=== PATIENT | female | born 1980 | race Caucasian/White ===

== ENCOUNTER 2017-03-01 20:44 | Emergency (ER) | payer MEDICAID ==
[2017-03-01 20:55] VITALS: BP 121/76
--- NOTE | 2017-03-01 21:24 | RAD ---
INDICATION: Wrist injury COMPARISON: None TECHNIQUE: AP, lateral, and oblique views were obtained. FINDINGS: The bony structures, joint spaces, and soft tissues are normal for age. IMPRESSION: NO ACUTE BONY FINDINGS.
--- NOTE | 2017-03-01 21:46 | UC ---
Hand/Wrist HPI - HPI Summary HPI Summary: LID OF HEAVY TRUNK FELL ONTO RIGHT WRIST. - History Of Current Complaint Chief Complaint: UCUpperExtremity Stated Complaint: WRIST INJURY Time Seen by Provider: 03/01/17 20:59 Hx Obtained From: Patient Hx Last Menstrual Period: 2003 Onset/Duration: Sudden Onset, Lasting Hours, Still Present Severity Initially: Moderate Severity Currently: Moderate Character Of Pain: Dull, Aching Aggravating Factor(s): Movement, Flexion, Extension Alleviating: Rest, Ice Related History: Dominant Hand Right - Allergies/Home Medications Allergies/Adverse Reactions: Allergies Allergy/AdvReac Type Severity Reaction Status Date / Time Codeine Allergy Unknown Verified 03/01/17 20:55 Reaction Details PMH/Surg Hx/FS Hx/Imm Hx Previously Healthy: Yes Endocrine History Of: Denies: Diabetes Respiratory History Of: Denies: COPD, Asthma - Surgical History Surgical History: Yes Surgery Procedure, Year, and Place: partial hysterectomy/michael/4 c-sections. BLADDER SUTURES TO 'TACK UP' BLADDER. - Family History Known Family History: Positive: Diabetes - Social History Occupation: Employed Full-time Lives: With Family Alcohol Use: Occasionally Substance Use Type: None Smoking Status (MU): Former Smoker Have You Smoked in the Last Year: No - Immunization History Hx Tetanus, Diphtheria Vaccination: Yes Vaccination Up to Date: Yes Review of Systems Constitutional: Negative Skin: Negative Eyes: Negative ENT: Negative Respiratory: Negative Cardiovascular: Negative Gastrointestinal: Negative Genitourinary: Negative Motor: Negative Neurovascular: Negative Musculoskeletal: Arthralgia - RIGHT WRIST, Myalgia Neurological: Negative Psychological: Negative All Other Systems Reviewed And Are Negative: Yes Physical Exam Triage Information Reviewed: Yes Appearance: Well-Appearing, No Pain Distress, Well-Nourished Vital Signs: Initial Vital Signs Temp 97.7 F 03/01/17 20:52 Pulse 80 03/01/17 20:52 Resp 18 03/01/17 20:52 BP 121/76 03/01/17 20:52 Pulse Ox 100 03/01/17 20:52 Vital Signs Reviewed: Yes Eye Exam: Normal ENT Exam: Normal ENT: Positive: Normal ENT inspection, Hearing grossly normal, Pharynx normal, TMs normal Dental Exam: Normal Neck exam: Normal Neck: Positive: Supple, Nontender, No Lymphadenopathy Respiratory Exam: Normal Respiratory: Positive: Chest non-tender, Lungs clear, Normal breath sounds, No respiratory distress, No accessory muscle use Cardiovascular Exam: Normal Cardiovascular: Positive: RRR, No Murmur, Pulses Normal Abdominal Exam: Normal Musculoskeletal: Positive: Strength Intact, ROM Intact, No Edema, Other: - TENDER RADIAL ASPECT OF RIGHT WRIST Neurological Exam: Normal Psychological Exam: Normal Skin Exam: Normal Hand/Wrist Course/Dx - Differential Dx/Diagnosis Differential Diagnosis/HQI/PQRI: Fracture, Sprain, Strain Provider Diagnoses: RIGHT WRIST SPRAIN/CONTUSION Discharge - Discharge Plan Condition: Stable Disposition: HOME Patient Education Materials: Contusion in Adults (ED), Wrist Sprain (ED) Forms: *Work Release Referrals: [facility] [Outside] Steven BENSON BEARING MAKERReina [Primary Care Provider] -
== END 2017-03-01 22:20 | disposition home or self-care (01) ==
LOC: UCEAST 20:44
DX: S63.501A Unspecified sprain of right wrist, initial encounter (principal); S60.211A Contusion of right wrist, initial encounter; W22.09XA Striking against other stationary object, initial encounter; Z88.5 Allergy status to narcotic agent; Z87.891 Personal history of nicotine dependence
CPT/HCPCS: 99211; G0463

== ENCOUNTER 2017-10-26 13:53 | Emergency (ER) | payer OTHER ==
[2017-10-26 14:21] VITALS: BP 120/78
--- NOTE | 2017-10-26 15:22 | UC ---
[facility] Dental HPI - HPI Summary HPI Summary: 37 y/o female presents to the urgent care c/o Rt ear pain, Rt ear pain and facial pain for the past 3 days. Pt reports she has a fracture molar with caries on th Rt side os her upper jaw . She thinks it is causing her symptoms. Pain is sharp, 8/10 and associated with Rt upper side gum swelling . She has taken Ibuprofen 400mg PO this morning at 0700am. Pt denies trismus, fever, SOB, chest pain, abdominal pain, N/V/D. - History of Current Complaint Chief Complaint: UCDentalProblem Stated Complaint: EAR AND DENTAL PAIN Time Seen by Provider: 10/26/17 15:00 Hx Obtained From: Patient Hx Last Menstrual Period: hyster ?: No Onset/Duration: Gradual Onset, Lasting Days - 3 days, Still Present, Worse Since - today Severity: Moderate Pain Intensity: 8 Pain Scale Used: 0-10 Numeric Aggravating Factor(s): Chewing Alleviating Factor(s): OTC Meds - Allergies/Home Medications Allergies/Adverse Reactions: Allergies Allergy/AdvReac Type Severity Reaction Status Date / Time Codeine Allergy Unknown Verified 10/26/17 14:24 Reaction Details PMH/Surg Hx/FS Hx/Imm Hx Previously Healthy: Yes - Pt denies PMHX - Surgical History Surgical History: Yes Surgery Procedure, Year, and Place: partial hysterectomy/michael/4 c-sections. BLADDER SUTURES TO 'TACK UP' BLADDER. - Family History Known Family History: Positive: Hypertension, Diabetes - Social History Occupation: Employed Full-time Lives: With Family Alcohol Use: Occasionally Substance Use Type: None Smoking Status (MU): Never Smoked Tobacco Have You Smoked in the Last Year: No - Immunization History Hx Tetanus, Diphtheria Vaccination: Yes Vaccination Up to Date: Yes Review of Systems Constitutional: Negative Skin: Negative Eyes: Negative ENT: Dental Pain - RT upper jaw pain, Ear Ache - RT ear pain Respiratory: Negative Cardiovascular: Negative Gastrointestinal: Negative Genitourinary: Negative Motor: Negative Neurovascular: Negative Musculoskeletal: Negative Neurological: Headache Psychological: Negative Is Patient Immunocompromised?: No All Other Systems Reviewed And Are Negative: Yes Physical Exam Triage Information Reviewed: Yes Vital Signs: Initial Vital Signs Temp 99 F 10/26/17 14:17 Pulse 71 10/26/17 14:17 Resp 20 10/26/17 14:17 BP 120/78 10/26/17 14:17 Pulse Ox 100 10/26/17 14:17 - Additional Comments Vital Signs Reviewed: Yes General: well developed. well nourished male sitting in the examining table w/o any apparent distress Eyes: Positive: Conjunctiva Clear - PERRLA, EOMI, fundi grossly normal ENT: Positive: Normal ENT inspection, Hearing grossly normal, Pharyngeal erythema, TMs normal, Uvula midline. Negative: Tonsillar swelling, Tonsillar exudate, Trismus Dental: Positive: Percussion Tenderness @ - molar 2-3 Gross Decay/Caries @ - molar 2-3, Abscess @ - molar 2, Cervical Lymphadenopathy - B/L anterior, Neck: Positive: Supple, Nontender Respiratory: Positive: Chest non-tender, Lungs clear, Normal breath sounds, No respiratory distress Cardiovascular: Positive: RRR, No Murmur, Pulses Normal, Brisk Capillary Refill Abdomen Description: Positive: Nontender, No Organomegaly, Soft. Negative: CVA Tenderness (R), CVA Tenderness (L) Bowel Sounds: Positive: Present Musculoskeletal: Positive: Strength Intact, ROM Intact, No Edema Neurological Exam: Normal Psychological Exam: Normal Skin Exam: Normal Dental Complaint Course/Dx - Course Course Of Treatment: 37 y/o female presents to the urgent care c/o Rt ear pain, Rt ear pain and facial pain for the past 3 days. Pt reports she has a fracture molar with caries on th Rt side os her upper jaw . She thinks it is causing her symptoms. Pain is sharp, 8/10 and associated with Rt upper side gum swelling . She has taken Ibuprofen 400mg PO this morning at 0700am. Pt denies trismus, fever, SOB, chest pain, abdominal pain, N/V/D. Hx obtained. Pt with probably adental abscess aroun molar #2 which has gross decay and it is fractued on examination. Pt given viscous Lidocaine at the clinic to alleviate symptoms. Pt Rx Clindamycin PO and Naproxen PO for pain. Pt strongly advised to f/u with Dentist as soon as possible for further evaluation and treatment. Pt understood and agreed with plan of care. Left the clinic ambulating. - Differential Dx/Diagnosis Differential Diagnosis/Dx: Dental Abscess, Dental Caries, Fractured Tooth, Peridontic Disease, Peritonsillar Abcess, Tonsillitis Provider Diagnoses: 1- RT upper jaw with dental abscess around molar #2. 2- fracture molar #2 Discharge - Discharge Plan Condition: Stable Disposition: HOME Prescriptions: Clindamycin Cap(NF) [Clindamycin Cap 300 mg Cap(NF)] 300 mg PO Q6H #30 cap Naproxen [Naproxen 500 mg] 500 mg PO Q8H PRN #30 tab PRN Reason: Pain Patient Education Materials: Dental Abscess (ED) Referrals: Reina Anglin RN [Primary Care Provider] - 2 Days Additional Instructions: 1-Please take full course of antibiotic to avoid resistance. If you develop any diarrhea please take Probiotics to alleviate symptoms 2- Take Naproxen as instructed after meals to alleviate pain and swelling. 3- F/u with your Dentist or Dental List provided as soon as possible for further treatment. 4- If symptoms do not improve or worsen please return to the urgent care or f/u with your PCP for further evaluation and treatment
[2017-10-26] MEDS: Lidocaine 2% VISCOUS* 15 ML UDC SWISH SPIT ONE (15:26)
[2017-10-26] MEDS: Ketorolac INJ* 60 MG/2 ML VIAL IM ONE (15:26)
== END 2017-10-26 15:53 | disposition home or self-care (01) ==
LOC: UCEAST 13:53
DX: K04.7 Periapical abscess without sinus (principal); S02.5XXA Fracture of tooth (traumatic), initial encounter for closed fracture; Z72.89 Other problems related to lifestyle; X58.XXXA Exposure to other specified factors, initial encounter; Y93.9 Activity, unspecified; Y92.9 Unspecified place or not applicable; Y99.9 Unspecified external cause status
CPT/HCPCS: 99212; G0463; J1885

== ENCOUNTER 2018-04-07 17:04 | Emergency (ER) | payer OTHER ==
[2018-04-07 17:57] VITALS: BP 125/79
--- NOTE | 2018-04-07 18:08 | UC ---
Lower Extremity/Ankle HPI - HPI Summary HPI Summary: pt has had R foot pain for many months. has seen biology specialist before and was suggested to get cortisone shot but never did. pain is n top of foot and worse when walking/standing and better if foot elevated no known injury - History of Current Complaint Chief Complaint: UCLowerExtremity Stated Complaint: FOOT PAIN Time Seen by Provider: 04/07/18 17:50 Hx Obtained From: Patient Hx Last Menstrual Period: hyster ?: No Onset/Duration: Gradual Onset Severity Initially: Moderate Severity Currently: Severe Pain Intensity: 10 Aggravating Factor(s): Standing, Ambulation Alleviating Factor(s): Rest Able to Bear Weight: Yes - Allergies/Home Medications Home Medications: Home Medications NK [No Home Medications Reported] 04/07/18 [History Confirmed 04/07/18] PMH/Surg Hx/FS Hx/Imm Hx Previously Healthy: Yes - Surgical History Surgical History: Yes Surgery Procedure, Year, and Place: partial hysterectomy/michael/4 c-sections. BLADDER SUTURES TO 'TACK UP' BLADDER. - Family History Known Family History: Positive: Hypertension, Diabetes - Social History Occupation: Unemployed Lives: With Family Alcohol Use: Occasionally Substance Use Type: None Smoking Status (MU): Never Smoked Tobacco Have You Smoked in the Last Year: No - Immunization History Hx Tetanus, Diphtheria Vaccination: Yes Vaccination Up to Date: Yes Review of Systems Constitutional: Negative Skin: Negative Respiratory: Negative Cardiovascular: Negative Neurovascular: Negative Musculoskeletal: Edema - R foot Neurological: Negative Psychological: Negative All Other Systems Reviewed And Are Negative: Yes Physical Exam Triage Information Reviewed: Yes Appearance: Well-Appearing, No Pain Distress, Obese Vital Signs: Initial Vital Signs Temp 98.6 F 04/07/18 17:51 Pulse 88 04/07/18 17:51 Resp 20 04/07/18 17:51 BP 125/79 04/07/18 17:51 Pulse Ox 99 04/07/18 17:51 Vital Signs Reviewed: Yes Respiratory Exam: Normal Cardiovascular Exam: Normal Cardiovascular: Positive: Pulses Normal, Brisk Capillary Refill Musculoskeletal: Positive: Strength Intact, ROM Intact, Other: - pain and swelling dorsal R foot, no ecchymosis Psychological Exam: Normal Skin Exam: Normal Diagnostics - Radiology No standard instances Xray Interpretation: No Acute Changes Radiology Interpretation Completed By: Radiologist - no fx Lower Extremity Course/Dx - Differential Dx/Diagnosis Differential Diagnosis/HQI/PQRI: Fracture (Closed), Strain, Tendonitis Provider Diagnoses: R foot tendonitis Discharge - Sign-Out/Discharge Documenting (check all that apply): Discharge/Admit/Transfer - Discharge Plan Condition: Good Disposition: HOME Patient Education Materials: Tendinitis (ED) Referrals: Reina Anglin RN [Primary Care Provider] - 2 Weeks (if no better) Additional Instructions: ice and elevate foot use ibuprofen 600mg every 6 hours with food if needed for pain increase water intake and avoid salt - Billing Disposition and Condition Condition: GOOD Disposition: HOME
--- NOTE | 2018-04-07 18:43 | RAD ---
HISTORY: Persistent right foot pain COMPARISONS: None VIEWS: 3, Frontal, lateral, and oblique views of the right foot FINDINGS: BONE DENSITY: Normal. BONES: There is no displaced fracture. There is a posterior calcaneal enthesophyte. JOINTS: There is no arthropathy. ALIGNMENT: There is no dislocation. SOFT TISSUES: Unremarkable. OTHER FINDINGS: None. IMPRESSION: HEEL SPUR. NO ACUTE OSSEOUS INJURY. IF SYMPTOMS PERSIST, RECOMMEND REPEAT IMAGING.
== END 2018-04-07 19:30 | disposition home or self-care (01) ==
LOC: UCEAST 17:04
DX: M77.51 Other enthesopathy of right foot and ankle (principal); M77.32 Calcaneal spur, left foot; Z90.711 Acquired absence of uterus with remaining cervical stump; Z90.49 Acquired absence of other specified parts of digestive tract
CPT/HCPCS: 99211; G0463

== ENCOUNTER 2018-08-21 19:05 | Emergency (ER) | payer OTHER ==
[2018-08-21 19:35] VITALS: BP 137/88
--- NOTE | 2018-08-21 19:52 | ED ---
Dizziness - HPI Summary HPI Summary: noted several days of increasing vertigo with some nausea, noted no tinnitus, or hearing loss, does have some pressure in the ears, this has happened two times before - History Of Current Complaint Chief Complaint: UCDizziness Stated Complaint: VERTIGO Time Seen by Provider: 08/21/18 19:41 Hx Obtained From: Patient Onset/Duration: Still Present Timing: Minutes Severity Initially: Moderate Severity Currently: Moderate Character: Head Spinning, Room Spinning, Dizzy Aggravating Factor(s): Change In Head Position Alleviating Factor(s): Rest Associated Signs And Symptoms: Positive: Nausea - Allergies/Home Medications Allergies/Adverse Reactions: Allergies Allergy/AdvReac Type Severity Reaction Status Date / Time No Known Allergies Allergy Verified 08/21/18 19:35 Home Medications: Home Medications Cholesterol Med* 1 tab PO DAILY 08/21/18 [History Confirmed 08/21/18] Depression Pill* 1 tab PO DAILY 08/21/18 [History Confirmed 08/21/18] Meclizine TAB* [Antivert 12.5 TAB*] PRN 08/21/18 [History] Sleeping Pill* 1 tab PO BEDTIME PRN 08/21/18 [History Confirmed 08/21/18] metFORMIN* [Glucophage 500 MG TAB *] 500 mg PO BID 08/21/18 [History Confirmed 08/21/18] PMH/Surg Hx/FS Hx/Imm Hx Previously Healthy: Yes Endocrine/Hematology History: Reports: Hx Diabetes Respiratory History: Denies: Hx Asthma, Hx Chronic Obstructive Pulmonary Disease (COPD) - Cancer History Cancer Type, Location and Year: CERVICAL CA - Surgical History Surgery Procedure, Year, and Place: partial hysterectomy/michael/4 c-sections. BLADDER SUTURES TO 'TACK UP' BLADDER. , CHOLECYSTECTOMY Infectious Disease History: No Infectious Disease History: Denies: Hx Clostridium Difficile, Hx Hepatitis, Hx Human Immunodeficiency Virus (HIV), Hx of Known/Suspected MRSA, Hx Shingles, Hx Tuberculosis, Hx Known/ Suspected VRE, Hx Known/Suspected VRSA, History Other Infectious Disease, Traveled Outside the [place] in Last 30 Days - Family History Known Family History: Positive: Hypertension, Diabetes - Social History Alcohol Use: Occasionally Substance Use Type: Reports: None Smoking Status (MU): Never Smoked Tobacco Have You Smoked in the Last Year: No Review of Systems Constitutional: Negative Eyes: Negative ENT: Negative Cardiovascular: Negative Respiratory: Negative Gastrointestinal: Negative Genitourinary: Negative Musculoskeletal: Negative Skin: Negative Neurological: Negative All Other Systems Reviewed And Are Negative: Yes Physical Exam Triage Information Reviewed: Yes Vital Signs On Initial Exam: Initial Vitals Temp Pulse Resp BP Pulse Ox 36.3 C 85 16 137/88 97 08/21/18 19:29 08/21/18 19:29 08/21/18 19:29 08/21/18 19:29 08/21/18 19:29 Appearance: Positive: Well-Appearing, Obese Skin: Positive: Warm, Dry Head/Face: Positive: Normal Head/Face Inspection Eyes: Positive: Normal ENT: Positive: Normal ENT inspection - positive positional vertigo , left side worse than right on doing [place] Hallpike manuevers Neck: Positive: Supple Respiratory/Lung Sounds: Positive: Clear to Auscultation Cardiovascular: Positive: Normal Bowel Sounds: Positive: Present Neurological: Positive: Other - positive positional vertigo on [place]- hallpike, positive latency and extinction no nystagmus Diagnostics - Vital Signs Vital Signs Temp Pulse Resp BP Pulse Ox 08/21/18 19:29 36.3 C 85 16 137/88 97 - Laboratory Lab Statement: Any lab studies that have been ordered have been reviewed, and results considered in the medical decision making process. Dizzy Course/Dx - Diagnoses Differential Diagnosis/HQI/PQRI: Benign Paroxysmal Positional Vertigo Provider Diagnoses: BPPV (benign paroxysmal positional vertigo) Discharge - Sign-Out/Discharge Documenting (check all that apply): Patient Departure All imaging exams completed and their final reports reviewed: Yes - Discharge Plan Condition: Fair Disposition: HOME Patient Education Materials: Benign Paroxysmal Positional Vertigo (ED) Referrals: Andressa Villasenor [Primary Care Provider] - Additional Instructions: may do exercises at home. If no improvement then formal exercises by physical therapy - Billing Disposition and Condition Condition: FAIR Disposition: Home
== END 2018-08-21 20:15 | disposition home or self-care (01) ==
LOC: UCEAST 19:05
DX: H81.10 Benign paroxysmal vertigo, unspecified ear (principal); R11.0 Nausea; E11.9 Type 2 diabetes mellitus without complications; Z79.84 Long term (current) use of oral hypoglycemic drugs
CPT/HCPCS: 99211; G0463

== ENCOUNTER 2019-01-05 16:49 | Emergency (ER) | payer OTHER ==
[2019-01-05] MEDS ORDERED: Lidocaine 2% VISCOUS* 15 ML UDC PO ONE (18:38)
[2019-01-05] MEDS ORDERED: Diazepam TAB(*) 5 MG PO ONE (18:41)
[2019-01-05] MEDS ORDERED: Acetaminophen TAB* 325 MG PO ONE (18:41)
--- NOTE | 2019-01-05 19:07 | ED ---
Throat Pain/Nasal Congestion - HPI Summary HPI Summary: Patient complains of acute on chronic vertigo, sore throat and fatigue. Sore throat and fatigue 3 days. History of vertigo times years recurrent around 2 times a month. Patient currently on meclizine which is not controlling symptoms. Denies fever, cough, POOLE, neck stiffness, CP, SOB, N/V/D, abdominal pain, change in urine, change in BM. Medical history is DM, vertigo. Has taken meclizine 25 mg twice today and once in the morning once in the afternoon. - History of Current Complaint Chief Complaint: EDGeneral Time Seen by Provider: 01/05/19 17:37 Hx Obtained From: Patient Onset/Duration: Sudden Onset Severity: Moderate Associated Signs And Symptoms: Positive: Negative Cough: None - Allergies/Home Medications Allergies/Adverse Reactions: Allergies Allergy/AdvReac Type Severity Reaction Status Date / Time No Known Allergies Allergy Verified 08/21/18 19:35 PMH/Surg Hx/FS Hx/Imm Hx Endocrine/Hematology History: Reports: Hx Diabetes Respiratory History: Denies: Hx Asthma, Hx Chronic Obstructive Pulmonary Disease (COPD) History: Denies: Hx Dialysis Sensory History: Denies: Hx Eye Prosthesis Opthamlomology History: Denies: Hx Legally Blind EENT History: Denies: Hx Deafness Neurological History: Denies: Hx Dementia Psychiatric History: Denies: Hx Autism - Cancer History Cancer Type, Location and Year: CERVICAL CA - Surgical History Surgery Procedure, Year, and Place: partial hysterectomy/michael/4 c-sections. BLADDER SUTURES TO 'TACK UP' BLADDER. , CHOLECYSTECTOMY Infectious Disease History: No Infectious Disease History: Denies: Hx Clostridium Difficile, Hx Hepatitis, Hx Human Immunodeficiency Virus (HIV), Hx of Known/Suspected MRSA, Hx Shingles, Hx Tuberculosis, Hx Known/ Suspected VRE, Hx Known/Suspected VRSA, History Other Infectious Disease, Traveled Outside the [place] in Last 30 Days - Family History Known Family History: Positive: Hypertension, Diabetes - Social History Alcohol Use: Occasionally Substance Use Type: Reports: None Smoking Status (MU): Never Smoked Tobacco Have You Smoked in the Last Year: No Review of Systems Constitutional: Negative Eyes: Negative Positive: Sore Throat Cardiovascular: Negative Respiratory: Negative Gastrointestinal: Negative Genitourinary: Negative Musculoskeletal: Negative Skin: Negative Neurological: Negative Psychological: Normal All Other Systems Reviewed And Are Negative: Yes Physical Exam - Summary Physical Exam Summary: Neuro exam normal. Triage Information Reviewed: Yes Vital Signs On Initial Exam: Initial Vitals Temp Pulse Resp BP Pulse Ox 98.4 F 89 16 123/91 100 01/05/19 17:15 01/05/19 17:15 01/05/19 17:15 01/05/19 17:15 01/05/19 17:15 Vital Signs Reviewed: Yes Appearance: Positive: Well-Appearing Skin: Positive: Warm Head/Face: Positive: Normal Head/Face Inspection Eyes: Positive: Normal ENT: Positive: Pharyngeal erythema, TMs normal Neck: Positive: Supple Respiratory/Lung Sounds: Positive: Clear to Auscultation Cardiovascular: Positive: Normal Abdomen Description: Positive: Nontender Musculoskeletal: Positive: Normal Neurological: Positive: Normal Psychiatric: Positive: Normal AVPU Assessment: Alert - Faulkner Coma Scale Best Eye Response: 4 - Spontaneous Best Motor Response: 6 - Obeys Commands Best Verbal Response: 5 - Oriented Coma Scale Total: 15 Diagnostics - Vital Signs Vital Signs Temp Pulse Resp BP Pulse Ox 01/05/19 17:15 98.4 F 89 16 123/91 100 - Laboratory Lab Results: Lab Results 01/05/19 Range/Units 18:17 Group A Strep Rapid Negative (Negative) Lab Statement: Any lab studies that have been ordered have been reviewed, and results considered in the medical decision making process. EENT Course/Dx - Course Course Of Treatment: Patient complains of acute on chronic vertigo, sore throat and fatigue. Sore throat and fatigue 3 days. History of vertigo times years recurrent around 2 times a month. Patient currently on meclizine which is not controlling symptoms. Denies fever, cough, POOLE, neck stiffness, CP, SOB, N/V/D, abdominal pain, change in urine, change in BM. Medical history is DM, vertigo. Has taken meclizine 25 mg twice today and once in the morning once in the afternoon. Physical exam:Neuro exam normal. Vital signs within normal limits. Strep negative. Patient given Valium 5 mg by mouth here in ED. Rx for same 4 tablets. Follow-up with primary care for vertigo. Sore throat likely viral syndrome. Rx for viscous lidocaine. - Diagnoses Provider Diagnoses: Chronic vertigo, Pharyngitis Discharge - Sign-Out/Discharge Documenting (check all that apply): Patient Departure Patient Received Moderate/Deep Sedation with Procedure: No - Discharge Plan Condition: Stable Disposition: HOME Prescriptions: Diazepam TAB(*) [Valium TAB(*)] 5 mg PO TID PRN #3 tab MDD 3 tabs PRN Reason: Vertigo Lidocaine 2% VISCOUS* [Xylocaine 2% Viscous*] 15 ml SWISH SPIT Q6H PRN #1 btl PRN Reason: Pain Patient Education Materials: Vertigo (ED), Viral Syndrome (ED) Referrals: Andressa Villasenor [Primary Care Provider] - Chan Marks MD [Medical Doctor] - Additional Instructions: Alternate ibuprofen 600 mg with Tylenol 650 mg every 3 hours for sore throat pain. Also use lidocaine as directed. Follow-up with ENT Dr Marks for further evaluation of chronic vertigo. Return to the ED for any new or worsening symptoms - Billing Disposition and Condition Condition: STABLE Disposition: Home
[2019-01-05 19:15] VITALS: BP 134/98
== END 2019-01-05 19:15 | disposition home or self-care (01) ==
LOC: ED 16:49
DX: J02.9 Acute pharyngitis, unspecified (principal); R42 Dizziness and giddiness; R53.83 Other fatigue; Z85.41 Personal history of malignant neoplasm of cervix uteri
CPT/HCPCS: 87651; 99281; A9270-GY

== ENCOUNTER 2020-01-02 14:14 | Emergency (ER) | payer OTHER ==
--- OUTSIDE RECORDS SUMMARY | 2020-01-02 14:19 | XMS REPORT | Summary of Care ---
:1980 Author Organization [facility] Address [address] [place] [address] Care Team Providers Name Role Phone Stated, Not Primary Care Provider Unavailable Reason for Visit Reason Comments Abdominal Pain Encounter Details Date Type Department Care Team Description 11/25/2019 - Emergency [facility] Emergency Department [facility] Emergency 11/26/2019 [address] [place] [address] [address] [phone] [address] [place] [address] Allergies No Known Allergiesdocumented as of this encounter (statuses as of 11/27/2019) Medications Medication Sig Dispensed Refills Start Date End Date Status Sennosides (SENNA) 8.6 Take 2 Tabs by 7 Cap 0 11/26/2019 12/03/2019 Active MG Oral Cap mouth DAILY for 7 days. docusate sodium Take 1 Cap by 7 Cap 0 11/26/2019 12/03/2019 Active (COLACE) 100 MG Oral mouth DAILY Cap NEEDED (constipation) for up to 7 days. simethicone (GENASYME, Take 1 Tab by 42 Tab 0 11/26/2019 12/10/2019 Active MYLICON) 80 MG Oral mouth THREE Chew Tab TIMES DAILY NEEDED (gas pain) for up to 14 days. documented as of this encounter (statuses as of 11/27/2019) Active Problems Not on filedocumented as of this encounter (statuses as of 11/27/2019) Social History Tobacco Use Types Packs/Day Years Used Date Never Assessed Sex Assigned at Date Recorded Not on file Job Start Date Occupation Industry Not on file Not on file Not on file Travel History Travel Start Travel End No recent travel history available. documented as of this encounter Last Filed Vital Signs Vital Sign Reading Time Taken Comments Blood Pressure 125/76 11/26/2019 1:18 AM EST Pulse 78 11/26/2019 1:18 AM EST Temperature 36.4 11/25/2019 9:33 PM EST C (97.5 F) Respiratory Rate 18 11/26/2019 1:18 AM EST Oxygen Saturation 98% 11/26/2019 1:18 AM EST Inhaled Oxygen Concentration - - Weight 86.9 kg (191 lb 9.3 oz) 11/25/2019 9:33 PM EST Height 154.9 cm (5' 1") 11/25/2019 9:33 PM EST Body Mass Index 36.2 11/25/2019 9:33 PM EST documented in this encounter Discharge Instructions Mckenzie Villalta, DO - 11/26/2019Take simethicone 80 mg three times daily for gas pains Take senna, colace and simethicone as prescribed today Follow up with the GI specialists (either the first visit you have in December or with one of our doctors) Return to the emergency department if you have increased abdominal pain, vomiting, fever, black or bloody stool, or concern for an emergency AttachmentsThe following attachments cannot be sent through Care Everywhere.Constipation Discharge Instructions, Adult (Cuban)Gas and Bloating (Cuban)documented in this encounter Plan of Treatment Health Maintenance Due Date Last Done Comments DTaP/Tdap/Td Vaccines (1 - Tdap) 1993 DEPRESSION SCREENING 1994 HIV SCREENING 1997 PAP SMEAR 04/11/2011 04/11/2008 INFLUENZA VACCINE (#1) 2019 HEPATITIS A IMMUNIZATION SERIES Aged Out No longer eligible based on patient's age to complete this topic HPV IMMUNIZATION SERIES Aged Out No longer eligible based on patient's age to complete this topic MENINGOCOCCAL VACCINE IMM Aged Out No longer eligible based on patient's age to complete this topic PNEUMOCOCCAL 0-64 YRS Aged Out No longer eligible based on patient's age to complete this topic documented as of this encounter Procedures Procedure Name Priority Date/Time Associated Diagnosis Comments XR ABDOMEN SERIES W STAT 11/26/2019 12:22 AM Results for this PA CHEST (STANDARD) EST procedure are in the results section. documented in this encounter Results XR ABDOMEN SERIES W PA CHEST (STANDARD) (11/26/2019 12:22 AM EST) Specimen Impressions Performed At 1. Normal chest. 2. Nonobstructive bowel gas pattern. Signed by Andrea Benedict on 11/26/2019 12:30 AM Narrative Performed At Procedure: XR ABDOMEN SERIES W PA CHEST (STANDARD) Date of service: 11/26/2019 12:10 AM History: 39 years, Female, "upper abdominal pain" Technique: 1 PA view of chest and 2 views of abdomen (upright, supine) Comparison: None. Findings: The cardiomediastinal silhouette is within normal limits. The lungs are clear. There is no pleural effusion or pneumothorax. The small and large bowel loops have normal caliber. There is gas in the large bowel down to the rectum. There are no air-fluid levels or free intraperitoneal air. There are surgical clips in the right upper quadrant of the abdomen. The bones are unremarkable. Procedure Note Interface, Rad Results - 11/26/2019 12:32 AM EST Procedure: XR ABDOMEN SERIES W PA CHEST (STANDARD) Date of service: 11/26/2019 12:10 AM History: 39 years, Female, "upper abdominal pain" Technique: 1 PA view of chest and 2 views of abdomen (upright, supine) Comparison: None. Findings: The cardiomediastinal silhouette is within normal limits. The lungs are clear. There is no pleural effusion or pneumothorax. The small and large bowel loops have normal caliber. There is gas in the large bowel down to the rectum. There are no air-fluid levels or free intraperitoneal air. There are surgical clips in the right upper quadrant of the abdomen. The bones are unremarkable. IMPRESSION 1. Normal chest. 2. Nonobstructive bowel gas pattern. Signed by Andrea Benedict on 11/26/2019 12:30 AM documented in this encounter Visit Diagnoses Diagnosis Bilateral upper abdominal pain Abdominal pain, right upper quadrant Constipation, unspecified constipation type Abdominal gas pain Flatulence, eructation, and gas pain documented in this encounter Administered Medications Medication Order MAR Action Action Date Dose Rate Site docusate sodium (COLACE) capsule Given 11/26/2019 12:39 AM EST 100 mg 100 mg 100 mg, Oral, NOW, 1 dose, 11/26/19 at 0035, This medication dosage form should NOT be crushed. Please call the inpatient Pharmacy for more information. [facility] ext. [phone] ext. [phone] [facility] ext. [phone] , home medication dispensing Dispensed by Provider 11/26/2019 1:16 AM EST 80 mg communication order for Home Use 80 mg, Oral, TID, 2 doses, First dose on Mon11/26/19 at 0100, Last dose on Mon11/26/19 at 0900, Home Discharge Medication: simethicone 80mg., Dispense #: 2 doses., sennosides (SENOKOT) tablet 17.2 mg Given 11/26/2019 12:39 AM EST 17.2 mg 17.2 mg (2 Tab), Oral, NOW, 1 dose, Mon11/26/19 at 0035 simethicone (GENASYME, MYLICON) chewable Given 11/26/2019 12:40 AM EST 80 mg tablet 80 mg 80 mg, Oral, NOW, 1 dose, Mon11/26/19 at 0005 documented in this encounter
--- NOTE | 2020-01-02 16:32 | UC ---
Headache HPI - HPI Summary HPI Summary: 39-year-old woman comes in with chief complaint of a frontal headache. Started about 2 months ago. It's more than a 10 out of 10 at its worse. No rhinorrhea. No fevers no chills. Light does bother her eyes. She has been having intermittent right upper arm numbness feeling like it is asleep. No difficulty with speech or vision. - History Of Current Complaint Chief Complaint: UCHeadache Stated Complaint: HEADACHE Time Seen by Provider: 01/02/20 16:18 Hx Last Menstrual Period: hyster Pain Intensity: 8 - Allergies/Home Medications Allergies/Adverse Reactions: Allergies Allergy/AdvReac Type Severity Reaction Status Date / Time No Known Allergies Allergy Verified 01/02/20 14:22 Home Medications: Home Medications Meclizine TAB* [Antivert 12.5 TAB*] 12.5 mg PO Q6H PRN 08/21/18 [History Confirmed 01/02/20] Cyclobenzaprine TAB* [Flexeril 10 MG TAB*] 10 mg PO TID PRN #15 tab 01/02/20 [Rx ] PMH/Surg Hx/FS Hx/Imm Hx Previously Healthy: Yes - Surgical History Surgical History: Yes Surgery Procedure, Year, and Place: partial hysterectomy/michael/4 c-sections. BLADDER SUTURES TO 'TACK UP' BLADDER. , CHOLECYSTECTOMY - Family History Known Family History: Positive: Hypertension, Diabetes - Social History Alcohol Use: None Substance Use Type: None Smoking Status (MU): Never Smoked Tobacco Have You Smoked in the Last Year: No - Immunization History Hx Tetanus, Diphtheria Vaccination: Yes Vaccination Up to Date: Yes Review of Systems All Other Systems Reviewed And Are Negative: Yes Constitutional: Positive: Other - see hpi Skin: Positive: Negative Eyes: Positive: Photophobia ENT: Positive: Negative Respiratory: Positive: Negative Cardiovascular: Positive: Negative Gastrointestinal: Positive: Nausea Motor: Positive: Other - see hpi Neurovascular: Positive: Other - see hpi Musculoskeletal: Positive: Other: - see hpi Neurological/Mental Status: Positive: Headache, Other - see hpi Psychological: Positive: Negative Is Patient Immunocompromised?: No Physical Exam Triage Information Reviewed: Yes Appearance: Well-Appearing, Well-Nourished, Pain Distress - mild Vital Signs: Initial Vital Signs Temp 97.0 F 01/02/20 14:17 Pulse 69 01/02/20 14:17 Resp 20 02/20/20 14:17 BP 123/78 01/02/20 14:17 Pulse Ox 100 01/02/20 14:17 Vital Signs Reviewed: Yes Eyes: Positive: Conjunctiva Clear, Other: - PERRLA EOMI. Mild photophobia. Neck: Positive: Supple Respiratory: Positive: Lungs clear, Normal breath sounds, No respiratory distress Cardiovascular: Positive: RRR Musculoskeletal: Positive: Strength Intact, ROM Intact Neurological: Positive: Alert Psychological: Positive: Age Appropriate Behavior Skin Exam: Normal Headache Course/Dx - Course Course Of Treatment: Joint Sealer: Rell Argueta ([id number]) Food Supervisor: BJ (NUANCE) Report Date: 01/02/2020 17:00:00 Report Status: Final Start of Report Content Patient Name: BLAINE JEREZ Medical Record#: [id number] Ordering Physician: Nura Fair MD Acct.#: [id number] : Age: 39 Sex: F Location: [facility] Exam Date: 01/02/20 1627 ADM Status: [facility] ER Order Information: CT BRAIN WO Accession Number: [id number] CPT: 80269 INDICATION: Headache. COMPARISON: There are no relevant prior studies available for comparison. TECHNIQUE: Contiguous axial sections of the brain were obtained from the skull base to the vertex without contrast. FINDINGS: There is no hemorrhagic focus, mass effect or midline shift. The jeronimo- white matter differentiation is grossly maintained without abnormal cerebral edema. The ventricles are of conventional size and configuration. The basal cisterns are patent. There is no abnormal extra axial collection. There is a partially empty sella. The globes and orbits are symmetric. The paranasal sinuses and mastoid air cells are predominantly well aerated. IMPRESSION: 1. No acute intracranial abnormality. 2. There is a partially empty sella. This is a nonspecific finding that can sometimes be seen in setting of idiopathic intracranial hypertension (pseudotumor cerebri). <Electronically signed by Rell Argueta MD in OV> 01/02/201655 Dictated By: Rell Argueta MD Dictated Date/Time: 01/02/201652 Transcribed Date/Time: 01/02/201652 Copy to: CC:Andressa DONALDSON; Nura Fair MD Imaging - [facility] Imaging - [facility] Imaging - [facility] [address] [place] [id number] [address] [address] ph ([phone]) ph ([phone]) ph ([phone]) End of Report Content I discussed the CT report with the patient. I also discussed the CT report and the patient's condition with Dr. Higignbotham the neurologist on-call. There is a possibility of pseudotumor cerebri causing the headache. On eye examination I was not able to appreciate papilledema however I am not fully confident without a dilated eye examination. Dr. Higginbotham recommended an ophthalmology examination. I spoke to the clinical research physician tour conductor for Marianela Decker and arranged to have the patient be seen tomorrow by Marianela Decker. I sent a prescription in for Flexeril to try to help with the headaches. I told the patient to follow the dosing instructions for the pain medications to avoid a possible overdose of medications. Patient will be seen by ratna Decker tomorrow. If needed if she has papilledema or any worsening of her condition she will go to the emergency department. Otherwise she will follow-up with Dr. Higginbotham. - Differential Dx/Diagnosis Provider Diagnosis: Headache, Blurred vision Discharge ED - Sign-Out/Discharge Documenting (check all that apply): Patient Departure All imaging exams completed and their final reports reviewed: Yes - Discharge Plan Condition: Stable Disposition: HOME Prescriptions: Cyclobenzaprine TAB* [Flexeril 10 MG TAB*] 10 mg PO TID PRN #15 tab PRN Reason: Pain - Moderate Patient Education Materials: Acute Headache (ED), Blurred Vision (ED) Forms: *Work Release Referrals: Andressa Villasenor [Primary Care Provider] - [facility] [Provider Group] Kody Higginbotham MD [Medical Doctor] - Additional Instructions: [place] [facility] [place] If you have not received a phone call from [facility] by 9 AM in the morning, call their office to arrange to be seen tomorrow January 03, 2020. Follow-up with Dr. Higginbotham neurology for your headache. GO TO THE EMERGENCY DEPARTMENT IF NOT IMPROVED OR WORSE; PAIN, WEAKNESS, NUMBNESS, CHANGE IN VISION OR SPEECH, YOU FEEL ILL OR ANY QUESTIONS OR CONCERNS. - Billing Disposition and Condition Condition: STABLE Disposition: Home
[2020-01-02 17:19] VITALS: BP 129/72
[2020-01-02] MEDS ORDERED: Ketorolac INJ* 30 MG/ML 1 ML VIAL IM ONE (17:41)
== END 2020-01-02 18:32 | disposition home or self-care (01) ==
LOC: UCEAST 14:14
DX: H53.8 Other visual disturbances (principal); R51 Headache; G93.89 Other specified disorders of brain; R11.0 Nausea
CPT/HCPCS: 70450; 96372; 99212; G0463; J1885